=== PATIENT | female | born 1960 | race Caucasian/White ===

== ENCOUNTER 2018-02-02 11:14 | Inpatient (IN) | END 2018-02-05 17:49 | disposition still patient (30) | DRG 100 ==

== ENCOUNTER 2018-03-10 08:05 | Day surgery (SDC) | END 2018-03-10 12:51 | disposition home or self-care (01) ==

== ENCOUNTER 2018-04-21 06:06 | Day surgery (SDC) | END 2018-04-21 08:34 | disposition home or self-care (01) ==

== ENCOUNTER 2018-05-19 12:08 | Day surgery (SDC) | END 2018-05-19 18:13 | disposition home or self-care (01) ==

== ENCOUNTER 2018-07-21 07:34 | Day surgery (SDC) | END 2018-07-21 16:40 | disposition home or self-care (01) ==